=== PATIENT | female | born 1965 | race Caucasian/White ===

== ENCOUNTER 2018-01-23 05:41 | Day surgery (SDC) | payer OTHER ==
[2018-01-23] MEDS: CEFAZOLIN 1 GM/50 ML (PMX) 50 ML IVPB (06:00)
[2018-01-23] MEDS ORDERED: hydrALAzine 20 MG INJ IV (06:30)
[2018-01-23] MEDS ORDERED: EPHEDrine SULFATE 50 MG/5 ML SYG IV (06:30)
[2018-01-23] MEDS ORDERED: morphine (1 MG/ML) 10ML SYRINGE IV ×3 (06:30)
[2018-01-23] MEDS ORDERED: ATROPINE 1 MG/10 ML SYRINGE IV (06:30)
[2018-01-23] MEDS ORDERED: MIDAZOLAM 1 MG/ML 2 ML INJ IV (06:30)
[2018-01-23] MEDS ORDERED: FENTAnyl 50 MCG/ML VIAL IV ×2 (06:30)
[2018-01-23] MEDS ORDERED: ONDANSETRON 4 MG INJ IV (06:30)
[2018-01-23] MEDS ORDERED: MEPERIDINE 25 MG INJ IV (06:30)
[2018-01-23] MEDS ORDERED: LABETALOL HCL 20MG INJ IV (06:30)
[2018-01-23] MEDS ORDERED: DIPHENHYDRAMINE 50 MG INJ IV (06:30)
[2018-01-23] MEDS ORDERED: OXYCODONE/ACETAMINOPHEN (5/325) TAB PO ×2 (06:30)
[2018-01-23] MEDS ORDERED: HYDROmorphONE 1 MG/5 ML IV SYRINGE IV ×3 (06:30)
[2018-01-23] MEDS ORDERED: NEOSTIGMINE 3 MG/3 ML SYRINGE (06:38)
[2018-01-23] MEDS ORDERED: ROCURONIUM 50 MG INJ (06:38)
[2018-01-23] MEDS ORDERED: MIDAZOLAM 1 MG/ML 2 ML INJ (06:38)
[2018-01-23] MEDS ORDERED: LIDOCAINE 2% (SDV) 5 ML INJ (06:38)
[2018-01-23] MEDS ORDERED: GLYCOPYRROLATE 0.4 MG INJ (06:38)
[2018-01-23] MEDS ORDERED: PROPOFOL 20 ML (06:38)
[2018-01-23] MEDS ORDERED: DEXAMETHASONE 4 MG/ML 1 ML INJ ×2 (06:39→07:31)
[2018-01-23] MEDS ORDERED: FENTAnyl 50 MCG/ML VIAL (06:39)
[2018-01-23] MEDS ORDERED: ONDANSETRON 4 MG INJ (06:39)
[2018-01-23] MEDS: LIDOCAINE 1% (MPF) 30 ML INJ INJ (07:15)
[2018-01-23] MEDS: DEXAMETHASONE 4 MG/ML 1 ML INJ INJ (07:15)
[2018-01-23] MEDS: BUPIVACAINE 0.5% (SDV) 30 ML INJ INJ (07:15)
[2018-01-23] MEDS ORDERED: BUPIVACAINE 0.5% (SDV) 30 ML INJ (07:31)
[2018-01-23] MEDS ORDERED: LIDOCAINE 1% (MPF) 30 ML INJ (07:31)
[2018-01-23] MEDS ORDERED: CEFAZOLIN 1 GM INJ (08:09)
== END 2018-01-23 10:49 | disposition home or self-care (01) ==
LOC: SDS 08:00
DX: M21.612 Bunion of left foot (principal)
CPT/HCPCS: 28292; 82962; 84703; 88304; 88311